=== PATIENT | female | born 1965 | race Caucasian/White ===

== ENCOUNTER 2016-10-19 16:08 | Emergency (ER) | payer BC ==
[2016-10-19 16:35] VITALS: BP 124/78
[2016-10-19] MEDS ORDERED: Sodium Chloride 0.9% 10 ML Syringe FLUSH PRN ×2 (16:54→19:57)
[2016-10-19] MEDS ORDERED: Alum Hydrox/Mag Hydrox/Simeth 30 ML, Lidocaine 2% 15 ML PO ONE ×2 (16:54)
[2016-10-19] MEDS ORDERED: Ondansetron 4 MG/2 ML SDV IVPUSH ONE (16:54)
[2016-10-19] MEDS ORDERED: Pantoprazole 40 MG Vial IVPUSH ONE (16:54)
[2016-10-19] MEDS ORDERED: Sodium Chloride 0.9% 1,000 ML IV SCH (17:00)
--- NOTE | 2016-10-19 17:02 | EDM.PDOC ---
ED HPI GI/ABDOMINAL - General Chief Complaint: Back Pain or Injury Stated Complaint: BACK PAIN, ABDOMINAL PAIN Time Seen by Provider: 10/19/16 16:35 Source of Information: Reports: Patient History Limitations: Reports: No limitations - History of Present Illness INITIAL COMMENTS - FREE TEXT/NARRATIVE: Patient is a 50-year-old female who presents to the ED complaining of periumbilical abdominal pain. Patient states symptoms started a few days ago with no precipitating factors. Pain is localized with no radiation. Patient states that the pain is rated a 7/10. She's been mildly nauseated with no emesis. Patient's had no diarrhea, pain with urination, chest pain, shortness of breath, abnormal vaginal discharge or bleeding, or documented fever. States she is concerned this may related to her back. Patient states approximately one month ago she was seen at the [facility] and had laminectomies C4-C6, posterior cervical fusion C3-T1, right L4 hemilaminectomy, partial fasciotomy, and removal of a synovial cyst to lumbar spine. Patient states in addition to the abdominal pain she has been experiencing bilateral low back discomfort with radiculopathy to the leg. States this is consistent to similar symptoms she had with a synovial cyst. She has been in contact with [facility] with regards to her current symptoms. They are working on arranging an appointment for the patient to be seen within the next few weeks. She's been told that the abdominal pain may be associated T1 radiculopathy. Pain to back is chronic rated a 7/10 currently. She only takes ibuprofen 800 mg 3 times a day for the discomfort. She refuses to take any narcotic medications since it heavily sedates her. States she's had normal bowel movements with no change in pattern. Denies Chest pain, shortness of breath, fever/chills, incontinence to urine or stool, numbness or tingling, or any additional complaints. Timing/Duration: Reports: Constant, Getting worse, Waxing/waning Location: periumbilical (Right lower quadrant) Quality: Reports: ache Severity: severe Worsens with: Reports: palpation Context: Denies: sick contact, bad/questionable food, out of country travel, recent trauma, lifting, activity/exercise Associated Symptoms (-Female): Reports: back pain (Chronic, increased lately with radiation discomfort down her left leg), nausea/vomiting (Nausea). Denies : chest pain, constipation, diarrhea, bloody stools, fever/chills, loss of appetite, malaise Treatments [employer]: Reports: Other (see below) (see hpi) - Related Data Allergies/ADRs: Allergies Allergy/AdvReac Type Severity Reaction Status Date / Time amoxicillin Allergy Rash Verified 10/19/16 16:27 latex Allergy Rash Verified 10/19/16 16:27 Home Meds: Home Meds Hydrocodone/Acetaminophen [[place] 5-325] 5 - 325 mg PO ASDIRECTED 10/19/16 [ History] Ibuprofen [Motrin] 600 mg PO Q6H PRN 10/19/16 [History] Past Medical History Musculoskeletal History: Reports: Other (see below) Other Musculoskeletal History: fusion C3-T1 - Past Surgical History HEENT Surgical History: Reports: Adenoidectomy, Tonsillectomy Female Surgical History: Reports: section Musculoskeletal Surgical History: Reports: Shoulder surgery Social & Family History - Tobacco Use Smoking Status *Q: Never Smoker - Caffeine Use Caffeine Use: Reports: Soda - Recreational Drug Use Recreational Drug Use: No ED ROS GENERAL - Review of Systems Review Of Systems: See Below Constitutional: Denies: fever, chills, malaise, decreased appetite Respiratory: Denies: Shortness of Breath, Cough, Sputum Cardiovascular: Denies: Chest pain, Dyspnea on exertion, Lightheadedness, Palpitations, Syncope GI/Abdominal: Reports: Abdominal pain, Nausea. Denies: Black stool, Bloody stool, Constipation, Diarrhea, Decreased appetite, Distension, Flatus, Hematemesis, Melena, Vomiting : Denies: dysuria, flank pain, frequency, hematuria, pain, urgency Musculoskeletal: Reports: neck pain (Chronic), back pain (Chronic), leg pain ( Radiculopathy down the left leg) Skin: Reports: no symptoms Neurological: Denies: Dizziness, Numbness, Tingling ED EXAM, GI/ABD - Physical Exam Exam: See Below Exam Limited By: No limitations General Appearance: alert, WD/WN, no apparent distress Eyes: bilateral: normal appearance Ears: hearing grossly normal Nose: normal inspection Throat/Mouth: Normal voice, No airway compromise Neck: supple Respiratory/Chest: no respiratory distress, lungs clear, normal breath sounds, no accessory muscle use Cardiovascular: normal peripheral pulses, regular rate, rhythm GI/Abdominal: normal bowel sounds, soft, no organomegaly, no distention, McBurney's sign, other (Epigastric/periumbilical tenderness). No: guarding, rebound, Andino's sign Back Exam: normal inspection, decreased range of motion (Secondary to extensive hardware 2 vertebral column), other (Mild tenderness noted to the low back bilaterally.). No: CVA tenderness (L), CVA tenderness (R) Extremities: normal inspection, non-tender, no pedal edema, normal capillary refill Neurological: alert, oriented, CN II-XII intact, normal cognition, no motor/ sensory deficits Psychiatric: normal affect, normal mood Skin Exam: Warm, Dry, Intact Course - Vital Signs Last Recorded V/S: Last Vital Signs Temp 97.4 F 10/19/16 16:33 Pulse 73 10/19/16 16:33 Resp 20 10/19/16 16:33 BP 124/78 10/19/16 16:33 Pulse Ox 99 10/19/16 16:33 - Orders/Labs/Meds Orders: Active Orders 24 hr Category Date Time Status Peripheral IV Care [RC] . DIRECTED Care 10/19/16 16:54 Active Abdomen 2V AP Flat Upright [CR] Stat Exams 10/19/16 16:54 Taken Peripheral IV Insertion Adult [OM.PC] Stat Oth 10/19/16 16:54 Ordered Labs: Laboratory Tests 10/19/16 10/19/16 10/19/16 Range/Units 17:16 17:16 18:40 WBC 9.66 (3.98-10.04) K/mm3 RBC 4.84 (3.98-5.22) M/mm3 Hgb 13.3 (11.2-15.7) gm/L Hct 40.9 (34.1-44.9) % MCV 84.5 (79.4-94.8) fl MCH 27.5 (25.6-32.2) pg MCHC 32.5 (32.2-35.5) g/dl RDW Std Deviation 42.6 (36.4-46.3) fL Plt Count 344 (182-369) K/mm3 MPV 8.7 L (9.4-12.3) fl Neut % (Auto) 66.7 (34.0-71.1) % Lymph % (Auto) 19.9 (19.3-51.7) % [place] % (Auto) 11.5 (4.7-12.5) % Eos % (Auto) 1.4 (0.7-5.8) Baso % (Auto) 0.4 (0.1-1.2) % Neut # (Auto) 6.44 H (1.56-6.13) K/mm3 Lymph # (Auto) 1.92 (1.18-3.74) K/mm3 [place] # (Auto) 1.11 H (0.24-0.36) K/mm3 Eos # (Auto) 0.14 (0.04-0.36) K/mm3 Baso # (Auto) 0.04 (0.01-0.08) K/mm3 Sodium 139 (136-145) mEq/L Potassium 4.0 (3.5-5.1) mEq/L Chloride 105 (98-107) mEq/L Carbon Dioxide 25 (21-32) mEq/L Anion Gap 13.0 (5-15) BUN 19 H (7-18) mg/dL Creatinine 1.1 H (0.55-1.02) mg/dL Est Cr Clr Drug Dosing 48.93 mL/min Estimated GFR (MDRD) 52 (>60) mL/min BUN/Creatinine Ratio 17.3 (14-18) Glucose 95 (74-106) mg/dL Calcium 8.9 (8.5-10.1) mg/dL Total Bilirubin 0.4 (0.2-1.0) mg/dL AST 19 (15-37) U/L ALT 14 (14-59) U/L Alkaline Phosphatase 79 (46-116) U/L C-Reactive Protein 0.3 (<1.0) mg/dL Total Protein 7.6 (6.4-8.2) g/dl Albumin 4.0 (3.4-5.0) g/dl Globulin 3.6 gm/dL Albumin/Globulin Ratio 1.1 (1-2) Lipase 177 (73-393) U/L Urine Color Light yellow (Yellow) Urine Appearance Clear (Clear) Urine pH 6.0 (5.0-8.0) Ur Specific [place] 1.010 (1.005-1.030) Urine Protein Negative (Negative) Urine Glucose (UA) Negative (Negative) Urine Ketones Negative (Negative) Urine Occult Blood 1+ H (Negative) Urine Nitrite Negative (Negative) Urine Bilirubin Negative (Negative) Urine Urobilinogen 0.2 (0.2-1.0) Ur Leukocyte Esterase Trace H (Negative) Urine RBC 0-5 (0-5) /hpf Urine WBC 0-5 (0-5) /hpf Ur Epithelial Cells 5-10 H (0-5) /hpf Urine Bacteria Rare (FEW) /hpf Urine Mucus Not seen (FEW) /hpf Meds: Medications Discontinued Medications Generic Name Dose Route Start Last Admin Trade Name Freq PRN Reason Stop Dose Admin Al Hydroxide/Mg Hydroxide 30 0 ml 10/19/16 16:54 10/19/16 17:21 ml/ Lidocaine HCl 15 ml PO 10/19/16 16:55 45 ml ONETIME ONE Administration Diatrizoate Meglum/Diatrizoate Sod 90 ml 10/19/16 19:57 10/19/16 20:23 Gastrografin 37% PO 10/19/16 19:58 90 ml ONETIME ONE Administration Sodium Chloride 1,000 mls @ 125 mls/hr 10/19/16 17:00 10/19/16 17:17 Normal Saline IV 125 mls/hr ASDIRECTED EARNESTINE Administration Iopamidol 125 ml 10/19/16 19:57 10/19/16 20:23 Isovue-300 (61%) IVPUSH 10/19/16 19:58 125 ml ONETIME ONE Administration Ondansetron HCl 4 mg 10/19/16 16:54 10/19/16 17:17 Zofran IVPUSH 10/19/16 16:55 4 mg ONETIME ONE Administration Pantoprazole Sodium 40 mg 10/19/16 16:54 10/19/16 17:18 Protonix Iv IVPUSH 10/19/16 16:55 40 mg ONETIME ONE Administration Sodium Chloride 10 ml 10/19/16 16:54 10/19/16 17:18 Saline Flush FLUSH 10 ml ASDIRECTED PRN Administration Keep Vein Open Sodium Chloride 10 ml 10/19/16 19:57 10/19/16 20:23 Saline Flush FLUSH 10 ml ONETIME PRN Administration IV FLUSH - Re-Assessments/Exams Free Text/Narrative Re-Assessment/Exam: 10/19/16 17:01 ordered a peripheral IV with normal saline, GI cocktail, Zofran, Protonix, CBC, chem 14, CRP, lipase, UA with micro, and 2 view of the abdomen. 10/19/16 18:09 x-ray of the abdomen did not reveal any acute abnormalities. Copious amounts of stool present throughout the colon. 10/19/16 18:11 labs reviewed: CBC essentially normal. Chemistry panel: Current 1.1, other findings within normal limits. CRP 0.3. Lipase 177. No UA collected at this time. 10/19/16 18:30 Discussed results of labs and x-ray of the abdomen with patient. She has not been able to provide a urine sample. Pain persists with waxing waning in intensity. She refuses any narcotic pain medications. Patient would like to proceed with CT of the abdomen and pelvis with oral and IV contrast. 10/19/16 19:45 UA negative for infection. Awaiting results of CT abdomen/ pelvis. 10/19/16 21:[address] abdomen and pelvis study are finally available. They were printed off and delivered to the ED. Impression: Nonspecific fluid in the endometrial cavity. Small noncalcified calcified gallstones within the gallbladder. CT study of the abdomen and pelvis is otherwise unremarkable. 10/19/16 21:42 Reassessment, pain has not improved. Patient is sitting in bed in no acute distress. Vital signs are stable. She refuses pain medications. Discussed results of CT study with patient. She will followup with Dr. Rodriguez in the next week for reevaluation. Discharge instructions as documented. Departure - Departure Time of Disposition: 21:43 Disposition: Home, Self-Care 01 Condition: good Clinical Impression: Abdominal pain Qualifiers: Abdominal location: periumbilical Qualified Code(s): R10.33 - Periumbilical pain Instructions: Abdominal Pain, Adult, [id number] Referrals: PCP,Not In Area [Primary Care Provider] - Rupal Caal [Physician] - Forms: ED Department Discharge Additional Instructions: Etiology of pain unclear. This maybe related to thoracic spine nerve radiculopathy or abdominal etiology. Again unclear. Will have you followup with Dr. Rodriguez PCP at [facility] in one week. Refrain from utilizing ibuprofen so frequently. Suggest utilizing denilson PPI with nsaid use. Return to the E.D. for any new or worsening pain. - My Orders Last 24 Hours: My Active Orders 10/19/16 16:54 Peripheral IV Care [RC] . DIRECTED Abdomen 2V AP Flat Upright [CR] Stat Peripheral IV Insertion Adult [OM.PC] Stat - Assessment/Plan Last 24 Hours: My Active Orders 10/19/16 16:54 Peripheral IV Care [RC] . DIRECTED Abdomen 2V AP Flat Upright [CR] Stat Peripheral IV Insertion Adult [OM.PC] Stat
[2016-10-19] MEDS ORDERED: Diatrizoate Meglumine/Diatrizoate Sodium 37% 120 ML Bottle PO ONE (19:57)
[2016-10-19] MEDS ORDERED: Iopamidol 612 MG/ML 150 ML Bottle IVPUSH ONE (19:57)
--- NOTE | 2016-10-19 20:58 | CT ---
CT abdomen and pelvis Technique: Multiple axial sections were obtained from above the dome of the diaphragm inferiorly through the pubic symphysis. Intravenous and oral contrast was utilized. Delayed images were also obtained bladder. Comparison: No previous CT exam. Findings: Visualized lung bases shows nothing acute. Liver shows no focal parenchymal abnormality. Gallbladder shows a single small gallstone which appears calcified. Spleen appears within normal limits. Adrenal glands show no nodule. Pancreas appears within normal limits. Aorta shows no aneurysmal dilatation. No retroperitoneal adenopathy or mesenteric abnormalities are seen. Kidneys show symmetric contrast enhancement. No pelvic mass or adenopathy is seen. Delayed images shows contrast within the bladder. Retrocecal appendix is seen which appears normal in size. No bowel dilatation is seen. No free fluid or inflammatory change is seen. Fluid identified within the endometrial cavity. This is nonspecific. Bone window settings were reviewed which appear within normal limits for the patient's age. Impression: 1. Nonspecific fluid within the endometrial cavity. 2. Small noncalcified calcified gallstone within the gallbladder. 3. CT study of the abdomen and pelvis is otherwise unremarkable. Diagnostic code #2
--- NOTE | 2016-10-20 10:04 | CR ---
Abdomen: Supine and upright views of the abdomen were obtained. Comparison: No previous study. Bone gas pattern appears within normal limits. No abnormal calcifications or soft tissue abnormality is seen. Bony structures are unremarkable. Impression: 1. Unremarkable two-view abdominal x-ray. Diagnostic code #1
== END 2016-10-19 21:58 | disposition home or self-care (01) ==
LOC: JD.ED 16:08
DX: R10.33 Periumbilical pain (principal); K80.80 Other cholelithiasis without obstruction; M54.5 Low back pain; M54.16 Radiculopathy, lumbar region; Z91.040 Latex allergy status; Z88.1 Allergy status to other antibiotic agents; Z79.899 Other long term (current) drug therapy
CPT/HCPCS: 36415; 74020; 74177; 80053; 81001; 83690; 85025; 86140; A9270; C9113; J2405; J7040; J7050; Q9963; Q9967; 96361; 96374; 96375; 99284; 99284-25; 99285-25